=== PATIENT | female | born 1990 | race Caucasian/White ===

== ENCOUNTER 2016-08-06 08:51 | Emergency (ER) | payer OTHER ==
[~2016-08-06] VITALS: Ht 170.2 cm; Wt 72.6 kg
[2016-08-06] MEDS ORDERED: IV NS 0.9% 1,000 ML ONE (09:11)
[2016-08-06] MEDS ORDERED: ONDANSETRON HCL/PF 4 MG/2 ML VIAL ONE (09:11)
[2016-08-06] MEDS ORDERED: IV SET PRIMARY 1 EA INFUS.SET MC ONE (09:11)
[2016-08-06] MEDS ORDERED: ONDANSETRON HCL/PF - ER 4 MG/2 ML VIAL IV ONE (09:30)
[2016-08-06] MEDS ORDERED: IV NS 0.9% 1,000 ML BAG IV ONE (09:30)
[2016-08-06 10:18] VITALS: BP 120/71
== END 2016-08-06 10:18 | disposition home or self-care (01) ==
LOC: ER 08:54
DX: J11.1 Influenza due to unidentified influenza virus with other respiratory manifestations (principal); R11.2 Nausea with vomiting, unspecified
CPT/HCPCS: 96361; 96374; 99284; A4606; J2405; J7030; Z7610